=== PATIENT | female | born 1970 | race Caucasian/White ===

== ENCOUNTER → 2024-10-02 08:59 | Outpatient (REF) | payer BC, SELFPAY | LOC: HWWDC 08:59 | PROVIDERS: ATTENDING PHYSICIAN Nurse Practitioner Family; FAMILY PHYSICIAN Family Medicine; REFERRING PHYSICIAN Obstetrics & Gynecology Gynecology | DX: Z12.31 Encounter for screening mammogram for malignant neoplasm of breast (principal) | CPT/HCPCS: 77063; 77067 ==

== ENCOUNTER 2025-01-27 17:19 | Emergency (ER) | payer BC, SELFPAY ==
[2025-01-27 17:36] VITALS: BP 135/100
--- NOTE | 2025-01-27 18:02 | ED.GENMED ---
History of Present Illness
General
Chief Complaint: Abdominal Pain
Source: patient
Exam Limitations: none
Time Seen by Provider: 01/27/25 18:01
Nursing documentation reviewed up to this point in time: agreed with
History of Present Illness
History of Present Illness:
This is a 54-year-old female with a past medical history of interstitial cystitis, allergic rhinitis, who presents to the emergency department today with concerns of abdominal pain. Patient reports that she was in [place] yesterday and reports that
the pain first started in her lower abdomen bilaterally. This is associated with rectal pressure. She reports that yesterday, she ate foods that she normally does not eat like carbohydrates and bananas. She reports that she does have a history of
constipation and takes [place] daily. She did use a rectal laxative suppository which caused her to have a small bowel movement and helped relieve rectal pressure. She reports that this morning, the pain traveled to her upper abdomen and now
she feels pain in her provide abdomen diffusely, worse on the right side. She also has associated nausea. She also felt like she had subjective fevers. She denies any chills. She did take 3 Advil yesterday which seemed to somewhat help with the
pain. She reports on the flight home today, the pain became unbearable and she was in agony. She is never had pain like this before. She has no past history of abdominal surgeries other than tummy tuck. She has any dysuria, hematuria. She
denies any chest pain or shortness of breath. She denies any radiation of the pain to the back.
Past History
Past History
ED Past Medical History: None
ED Past Surgical History: None
Social History
Tobacco: Non-smoker
Alcohol: None
Drug: None
Personal:
Living: with family
Employment: Employed
Family History
Family History: Other (Noncontributory)
Review of Systems
Review of Systems
All Other Systems: ROS reviewed and negative except as documented in HPI and ROS
Phy Exam
Physical Exam
Physical Exam:
General: Patient is well appearing and in no acute distress; non-toxic
Skin: Warm and dry, no rashes or lesions
Head: Normocephalic, atraumatic
Eyes: Sclera non-icteric. EOMs intact.
Cardiac: Regular rate and rhythm, no murmurs
Peripheral Vascular: No lower extremity swelling or edema
Pulm: Normal respiratory effort, no wheezes, rales, or rhonchi
Abdomen: Tenderness to palpation at McBurney's point with guarding; normoactive bowel sounds; no abdominal distension
Neuro: CN II-XII intact, no focal neurologic deficits.
Psychiatric: Appropriate mood and affect.
Course
Orders/Labs/Results
Orders:
Orders
01/27/25 18:14
CT Abd/pelvis W Iv Cont Urgent
Comment:
Reason For Exam: RLQ pain
0.9% Sodium Chloride 500 ml [Nss] 500 ml IV BOLUS
Ketorolac [Toradol] 15 mg IV NOW STA
Test Result ONCE
01/27/25 18:23
Complete Blood Count/With Diff Urgent
Comprehensive Metabolic Panel Urgent
Lipase Urgent
01/27/25 18:47
, Urine Qualitative Screen [HCG, Urine Qualitative Screen] Urgent
Date Specimen was Collected: 01/27/25
Time Specimen was Collected: 18:15
Urinalysis Reflex To Culture Urgent
Date Specimen was Collected: 01/27/25
Time Specimen was Collected: 18:16
Urine Microscopic Reflex Cult Urgent
Urine Culture Urgent
CRYS Source: U
Specimen Description:
Date Specimen was Collected: 01/27/25
Time Specimen was Collected: 18:16
01/27/25 20:38
Amoxicillin 875 mg/Clav 125 mg [Augmentin 875 mg/125 mg] 1 tablet PO NOW STA
Abnormal Lab Results
01/27/25 01/27/25
18:23 18:47
RBC 3.77 L 10^6/uL
(4.20-5.40)
Hgb 11.5 L g/dL
(12.0-16.0)
Hct 34.1 L %
(37.0-47.0)
Lymphocytes % 19.3 L %
(20.5-51.1)
Glucose 105 H mg/dl
(70-99)
Urine Ketones 1+ A
(Negative)
Ur Occult Blood Reflex 3+ A
(Negative)
Leukocyte Esterase Rfl 2+ A
(Negative)
Urine RBC 7-10 A /HPF
(0-2)
Urine WBC (Reflex) 30-40 A /HPF
(0-5)
Urine Bacteria (Reflex) Moderate A
(Negative)
Urine Albumin (Reflex) 1+ A
(Neg - Trace)
01/27/25 18:23
01/27/25 18:23
Vital Signs
Initial and Last Documented VS:
Initial Vital Signs
Temp Pulse Resp BP Pulse Ox
97.8 F 76 18 135/100 100
01/27/25 17:36 01/27/25 17:36 01/27/25 17:36 01/27/25 17:36 01/27/25 17:36
Last Documented Vital Signs
Temp Pulse Resp BP Pulse Ox
97.8 F 65 13 118/74 98
01/27/25 17:36 01/27/25 21:00 01/27/25 21:00 01/27/25 21:00 01/27/25 21:00
MDM/Problems Addressed
Differential Diagnosis Includes:
ddx include appendicitis, diverticulitis, SBO, gastroenteritis, colitis, constipation
MDM/Problems Addressed:
This is a 54-year-old female with a past medical history of interstitial cystitis, allergic rhinitis, who presents to the emergency department today with concerns of abdominal pain. Patient reports that she was in [place] yesterday and reports that
the pain first started in her lower abdomen bilaterally. This is associated with rectal pressure. Today, the pain radiated to the front and on exam she is now tender diffusely but more so in the right lower abdominal quadrant. Her vitals are
stable. She is afebrile. Will treat pain with toradol, will send for CT scan and check urine.
Urinalysis does show leukocyte esterase, white blood cells, and moderate bacteria. CT scan reveals colitis. Will cover potential urinary tract infection and colitis with Augmentin. Patient is no white blood cell count, no fever, no indication for
admission for IV antibiotics at this time. Return precautions discussed. Patient stable for discharge
*Pulse Oximetry
Patient hypoxic: no
*Critical Care Note
Total Time (30-74mins, 75-104mins- exclusive of procedures): Not Applicable
Data Reviewed
Review of Other/Old Records Reveals: Records (Reviewed ER physician documentation from 07/24/2011, patient seen for abdominal pain is having urinary frequency was discharge with unremarkable workup)
Source: patient and records
ED Attending Note
-
Portions of this chart may have been created with voice recognition software.� Occasional wrong word or��sound alike� substitutions may have occurred due to the inherent limitations of voice recognition software.
Discharge Plan
Departure
Patient Disposition: Home (Routine Discharge)
Date of Disposition: 01/27/25
Time of Disposition: 21:11
Patient with high blood pressure during this ER visit?: Yes
Condition: Good
Discharge Problem:
Colitis
Instructions: Colitis - Discharge instructions, BLOOD PRESSURE
Prescriptions:
New
amoxicillin-pot clavulanate 875-125 mg tablet
1 tab PO BID 7 Days Qty: 14 0RF
No Action
diphenhydramine HCl [Banophen] 25 MG capsule
25 mg PO HSPRN PRN (Reason: sleep)
prenat.vits,jenn,rar-sjks-miwwj [ Vitamin] 1 TAB tablet
1 tab PO
Referrals:
Stacie Mcfarland DO [Family Provider] -
Radha Moore MD [Active] - Call in 1-3 days for appt
Activity Restrictions/Additional Instructions:
Your CT scan showed findings suspicious for nonspecific colitis involving the descending colon to rectosigmoid colon.
Augmentin has been sent to your pharmacy. You can take one tablet twice daily for 7 days.
Please follow up with your primary care provider.
PLEASE RETURN TO THE EMERGENCY DEPARTMENT SHOULD YOU DEVELOP CHEST PAIN, SHORTNESS OF BREATH, RECTAL BLEEDING, VOMITING BLOOD, FEVERS OR CHILLS, INTRACTABLE NAUSEA OR VOMITING, OR ANY OTHER SIGNS OR SYMPTOMS WORRISOME TO YOU.
Interventions
Interventions:
*Risk Screen - Suicide Last Done: 01/27/25 17:36
*General Assessment Last Done: 01/27/25 17:36
*Nursing Disposition Last Done: 01/27/25 21:18
PR-Kkstrr-Ubnzhmmxdz Assessment Last Done: 01/27/25 18:33
Discharge Date and Time
Discharge Date/Time: 01/27/25 21:18
Print Language: GRE[place]DI[place]
[2025-01-27] MEDS: NSS 500 IV (18:24)
[2025-01-27] MEDS: TORADOL 15 MG IV (18:24)
[2025-01-27 18:34] LABS: % Basophils 0.4 % (0-2); % Eosinophils 1.2 % (0-6); % Immature Granulocytes 0.2 % (0-0.5); % Lymphocytes 19.3 % (20.5-51.1); % Monocytes 5.5 % (1.7-9.3); % Neutrophils 73.4 % (42.2-75.2); Absolute Eosinophils 0.1 10^3/uL (0-0.7); Absolute Lymphocytes 1.6 10^3/uL (1.2-3.4); Absolute Monocytes 0.5 10^3/uL (0.1-0.6); Absolute Neutrophils 6.1 10^3/uL (1.4-6.5); Hematocrit 34.1 % (37.0-47.0); Hemoglobin 11.5 g/dL (12.0-16.0); Mean Corp Hgb Conc. 33.7 g/dL (33.0-37.0); Mean Corpuscular Hgb 30.5 pg (27.0-31.0); Mean Corpuscular Volume 90.5 fL (81.0-99.0); Mean Platelet Volume 9.6 fL (7.4-10.4); Nucleated Red Blood Cells % 0 %; Platelet Count 236 10^3/uL (130-400); Red Blood Cell Count 3.77 10^6/uL (4.20-5.40); Red Cell Dist. Width 12.8 % (11.5-14.5); White Blood Cell Count 8.2 10^3/uL (4.8-10.8)
[2025-01-27 18:53] LABS: ALT (SGPT) 33 U/L (0-35); AST (SGOT) 31 U/L (14-36); Albumin 4.3 g/dl (3.5-5.0); Alkaline Phosphatase 59 U/L (38-126); Blood Urea Nitrogen 17 mg/dl (7-17); Calcium 9.4 mg/dl (8.4-10.2); Carbon Dioxide 28 mmol/L (22-30); Chloride 106 mmol/L (98-107); Glucose 105 mg/dl (70-99); Lipase 239 U/L (23-300); Sodium 138 mmol/L (135-145); Total Bilirubin 0.7 mg/dl (0.2-1.3); eGFR > 60.00
[2025-01-27 19:11] LABS: HCG, Urine Qualitative Screen Negative
[2025-01-27 19:20] LABS: Urine Albumin 1+ (Neg - Trace); Urine Bilirubin Negative (Negative); Urine Character Clear (Clear); Urine Color Yellow; Urine Glucose Negative (Negative); Urine Ketone 1+ (Negative); Urine Leukocyte 2+ (Negative); Urine Nitrite Negative (Negative); Urine Occult Blood 3+ (Negative); Urine Specific Gravity 1.025 (<1.030); Urine Urobilinogen Negative (Neg - 1+)
[2025-01-27 19:54] LABS: Urine Bacteria Moderate (Negative); Urine Mucus Many; Urine White Cell 30-40 /HPF (0-5)
[2025-01-27 20:05] VITALS: BP 122/77
[2025-01-27] MEDS: AUGMENTIN 875 MG/125 MG 1 TABLET PO (20:58)
[2025-01-27 21:00] VITALS: BP 118/74
== END 2025-01-27 21:18 | disposition home or self-care (01) ==
LOC: EMR 17:19
PROVIDERS: Physician Assistant; EMERGENCY PHYSICIAN Student in an Organized Health Care Education/Training Program; FAMILY PHYSICIAN Family Medicine
DX: K52.9 Noninfective gastroenteritis and colitis, unspecified (principal); R03.0 Elevated blood-pressure reading, without diagnosis of hypertension; J30.9 Allergic rhinitis, unspecified
CPT/HCPCS: 99284; 96361; 96374; 74177; 80053; 81003; 81015; 81025; 83690; 85025; 87077; 87086; Q9967

== ENCOUNTER → 2025-06-11 07:59 | Outpatient (REF) | payer BC, SELFPAY | LOC: HWRAD 07:59 | PROVIDERS: ATTENDING PHYSICIAN Obstetrics & Gynecology Gynecology; FAMILY PHYSICIAN Family Medicine; REFERRING PHYSICIAN Obstetrics & Gynecology | DX: N95.0 Postmenopausal bleeding (principal) | CPT/HCPCS: 76830; 76856 ==